=== PATIENT | female | born 1945 | race African-American/Black ===

== ENCOUNTER → 2019-07-09 | Outpatient (CLI) | payer OTHER ==
--- NOTE | 2019-07-09 12:31 | KCIC ---
EXAM: Dual energy x-ray absorptiometry (DEXA). HISTORY: Postmenopausal presents for osteoporosis screening. COMPARISON: None. TECHNIQUE: Dual energy x-ray absorptiometry of the lumbar spine and left hip was performed. Calculation of bone mineral density based on standard deviations above or below the expected young adult normal value (T-score) was completed. FINDINGS: The average bone mineral density in the 1st through 4th lumbar vertebrae is 1.354 g/cmxcm, corresponding with a T-score of 2.8. The average total bone mineral density in the left hip is 1.056 g/cmxcm, corresponding with a T-score of 0.9. IMPRESSION: Normal bone mineral density. Note: Definitions established by the World Health Organization: 1. Normal: T-score is -1.0 or above. 2. Osteopenia: T-score is between -1.0 and -2.5 . 3. Osteoporosis: T-score is -2.5 or below. Electronically signed by: Kia Neves MD (07/09/2019 12:28 PM) [id number]
== END | disposition home or self-care (01) ==
LOC: KCIC MAMMO 10:43
PROVIDERS: ATTEND Family Medicine
DX: Z13.820 Encounter for screening for osteoporosis (principal); Z78.0 Asymptomatic menopausal state
CPT/HCPCS: 77080

== ENCOUNTER → 2019-07-09 | Outpatient (CLI) | payer OTHER ==
--- NOTE | 2019-07-10 09:11 | KCIC ---
EXAM: Bilateral screening mammogram. HISTORY: 74-year-old female presents for screening mammography. TECHNIQUE: Full-field digital craniocaudal and mediolateral oblique views of both breasts are obtained for evaluation. Computer aided detection with DestineerD software version 9.3 was applied. COMPARISON: 10/26/2016 and 07/30/2015 BREAST PARENCHYMAL DENSITY: Level B - Scattered fibroglandular densities. FINDINGS: There is no new suspicious mass, microcalcification or region of architectural distortion. IMPRESSION: BI-RADS Category 2: Benign finding(s). RECOMMENDATION: Annual mammography is recommended. If your mammogram demonstrates that you have dense breast tissue, which could hide abnormalities, and if you have other risk factors for breast cancer that have been identified, you might benefit from supplemental screening tests that may be suggested by your ordering physician. Dense breast tissue, in and of itself, is a relatively common condition. This information is not provided to cause undue concern, but rather to raise your awareness and to promote discussion with your physician regarding the presence of other risk factors, in addition to dense breast tissue. A report of your mammography results will be sent to you and your physician. You should contact your physician if you have any questions or concerns regarding this report. Mammography is a sensitive method for finding small breast cancers, but it does not detect them all and is not a substitute for careful clinical examination. A negative mammogram does not negate a clinically suspicious finding and should not result in delay in biopsying a clinically suspicious abnormality. PQRS compliance statement - Patient information was entered into a reminder system with a target due date for the next mammogram. "Our facility is accredited by the [employer] Mammography Program." Electronically signed by: Kia Neves MD (07/10/2019 9:08 AM) [facility]
== END | disposition home or self-care (01) ==
LOC: KCIC 11:27
PROVIDERS: ATTEND Family Medicine
DX: Z12.31 Encounter for screening mammogram for malignant neoplasm of breast (principal)
CPT/HCPCS: 77067

== ENCOUNTER 2019-10-19 10:09 | Emergency (ER) | payer OTHER ==
[~2019-10-19] VITALS: Ht 172.7 cm; Wt 90.9 kg
[2019-10-19 11:22] LABS: BASO # 0.2 x10^3/uL (0.0-0.2); BASO % 3 % (0-3); EOS # 0.2 x10^3/uL (0.0-0.7); EOS % 2 % (0-3); HEMATOCRIT 38.2 % (36.0-47.0); HEMOGLOBIN 12.6 g/dL (12.0-15.5); LYMPH # 3.1 x10^3/uL (1.0-4.8); LYMPH % 39 % (24-48); MEAN CORPUSCULAR HEMOGLOBIN 26 pg (25-35); MEAN CORPUSCULAR HGB CONC 33 g/dL (31-37); MEAN CORPUSCULAR VOLUME 80 fL (79-100); MONO # 0.9 x10^3/uL (0.0-1.1); MONO % 11 % (0-9); NEUT # 3.6 x10^3/uL (1.8-7.7); NEUT % 45 % (31-73); PLATELET COUNT 324 x10^3/uL (140-400); RED BLOOD COUNT 4.77 x10^6/uL (3.50-5.40); RED CELL DISTRIBUTION WIDTH 13.9 % (11.5-14.5)
[2019-10-19 11:28] LABS: GFR 65.8; POTASSIUM 3.4 mmol/L (3.5-5.1)
[2019-10-19 11:37] LABS: ALBUMIN 3.3 g/dL (3.4-5.0); ALBUMIN/GLOBULIN RATIO 0.8 (1.0-1.7); TOTAL BILIRUBIN 0.3 mg/dL (0.2-1.0); TOTAL PROTEIN 7.3 g/dL (6.4-8.2)
[2019-10-19 11:38] LABS: MAGNESIUM 1.8 mg/dL (1.8-2.4)
[2019-10-19] MEDS ORDERED: CALCIUM GLUCONATE 1,000 MG/10 ML VIAL. IV ONE (12:00)
[2019-10-19] MEDS ORDERED: CALCIUM GLUCONATE 2,000 MG in IV NORMAL SALINE 100ML 100 ML IV ONE (12:00)
[2019-10-19] MEDS ORDERED: POTASSIUM CHLORIDE 20 MEQ TABLET.ER. PO ONE (12:45)
[2019-10-19 12:57] VITALS: BP 167/84
[2019-10-19] MEDS ORDERED: CALC-157 PO (13:12)
--- NOTE | 2019-10-19 13:14 | PHYS DOC ---
Past Medical History Past Medical History: High Cholesterol, Hypertension, Hyperthyroid (LAUREL VILLAFUERTE APRN) Past Surgical History: Other Additional Past Surgical Histo: PARATHYROID REMOVED 10/11/19 (LAUREL VILLAFUERTE APRN) Smoking Status: Never Smoker Alcohol Use: Occasionally (LAUREL VILLAFUERTE APRN) General Adult EDM: Chief Complaint: ABNORMAL LABS HPI: HPI: Patient is a 74 year old AA female who presents to the emergency department after being sent by her hearing care practitioner. Patient states that she had routine labs drawn yesterday for follow-up appointment scheduled on October 20 after having her parathyroid removed on 10/11/2019, this morning her hearing care practitioner called her and told her that her calcium was low and she needed to go to the ER to have it rechecked. Patient denies any loss of muscle control. She states that for the last 2 days she has noticed that her hands and her feet were tingling. She denies any headache, tremors, weakness, headache, vision changes, chest pain, palpitations, nausea, vomiting, diarrhea, abdominal pain, back pain, or fever. She currently denies any pain. (LAUREL VILLAFUERTE APRN) Review of Systems: Review of Systems: Constitutional: Denies fever or chills. [] Eyes: Denies change in visual acuity. [] HENT: Denies nasal congestion or sore throat. [] Respiratory: Denies cough or shortness of breath. [] Cardiovascular: Denies chest pain or edema. [] GI: Denies abdominal pain, nausea, vomiting, or diarrhea. [] Musculoskeletal: Denies back pain or joint pain. [] Integument: Denies rash. [] Neurologic: See HPI Endocrine: Denies polyuria or polydipsia. [] Lymphatic: Denies swollen glands. [] Psychiatric: Denies depression or anxiety. [] (LAUREL VILLAFUERTE APRN) Heart Score: Risk Factors: Risk Factors: DM, Current or recent (<one month) smoker, HTN, HLP, family history of CAD, obesity. Risk Scores: Score 0 - 3: 2.5% MACE over next 6 weeks - Discharge Home Score 4 - 6: 20.3% MACE over next 6 weeks - Admit for Clinical Observation Score 7 - 10: 72.7% MACE over next 6 weeks - Early Invasive Strategies (LAUREL VILLAFUERTE APRN) Current Medications: Current Medications Medications (Trade) Dose Ordered Sig/Dylan Start Time Stop Time Status Last Admin Dose Admin Calcium Gluconate (Calcium Gluconate) 2,000 mg 1X ONCE 10/19/19 12:00 10/19/19 12:01 UNV Calcium Gluconate 2000 mg/Sodium Chloride 120 ml @ 180 mls/hr 1X ONCE 10/19/19 12:00 10/19/19 12:39 DC 10/19/19 12:28 180 MLS/HR Potassium Chloride (Klor-Con) 40 meq 1X ONCE 10/19/19 12:45 10/19/19 12:46 DC (LAUREL VILLAFUERTE APRN) Allergies: Allergies: Allergies Coded Allergies Type Severity Reaction Last Updated Verified No Known Drug Allergies 10/19/19 No (LAUREL VILLAFUERTE APRN) Physical Exam: PE: Constitutional: Well developed, well nourished, no acute distress, non-toxic appearance. [] HENT: Normocephalic, atraumatic, bilateral external ears normal, oropharynx moist, no oral exudates, nose normal. [] Eyes: PERRLA, EOMI, conjunctiva normal, no discharge. [] Neck: Normal range of motion, no tenderness, supple, no stridor; horizontal incision present from recent parathyroid removal, incision edges are well approximated without purulent drainage or warmth there is mild erythema [] Cardiovascular:Heart rate regular rhythm Lungs & Thorax: Bilateral breath sounds clear to auscultation, Respirations even and unlabored, no retractions, no respiratory distress [] Skin: Warm, dry, no erythema, no rash. [] Extremities: No tenderness, no cyanosis, ROM intact, no edema. [] Neurologic: Alert and oriented X 3, normal motor function, normal sensory function, no focal deficits noted. [] Psychologic: Affect normal, judgement normal, mood normal. [] (LAUREL VILLAFUERTE APRN) Current Patient Data: Labs: Laboratory Tests Test 10/19/19 11:06 10/19/19 11:20 White Blood Count 8.0 x10^3/uL (4.0-11.0) Red Blood Count 4.77 x10^6/uL (3.50-5.40) Hemoglobin 12.6 g/dL (12.0-15.5) Hematocrit 38.2 % (36.0-47.0) Mean Corpuscular Volume 80 fL (79-100) Mean Corpuscular Hemoglobin 26 pg (25-35) Mean Corpuscular Hemoglobin Concent 33 g/dL (31-37) Red Cell Distribution Width 13.9 % (11.5-14.5) Platelet Count 324 x10^3/uL (140-400) Neutrophils (%) (Auto) 45 % (31-73) Lymphocytes (%) (Auto) 39 % (24-48) Monocytes (%) (Auto) 11 % (0-9) H Eosinophils (%) (Auto) 2 % (0-3) Basophils (%) (Auto) 3 % (0-3) Neutrophils # (Auto) 3.6 x10^3/uL (1.8-7.7) Lymphocytes # (Auto) 3.1 x10^3/uL (1.0-4.8) Monocytes # (Auto) 0.9 x10^3/uL (0.0-1.1) Eosinophils # (Auto) 0.2 x10^3/uL (0.0-0.7) Basophils # (Auto) 0.2 x10^3/uL (0.0-0.2) Sodium Level 137 mmol/L (136-145) Potassium Level 3.4 mmol/L (3.5-5.1) L Chloride Level 98 mmol/L (98-107) Carbon Dioxide Level 30 mmol/L (21-32) Anion Gap 9 (6-14) Blood Urea Nitrogen 11 mg/dL (7-20) Creatinine 1.0 mg/dL (0.6-1.0) Estimated GFR (Cockcroft-Gault) 65.8 BUN/Creatinine Ratio 11 (6-20) Glucose Level 112 mg/dL (70-99) H Calcium Level 6.0 mg/dL (8.5-10.1) *L Magnesium Level 1.8 mg/dL (1.8-2.4) Total Bilirubin 0.3 mg/dL (0.2-1.0) Aspartate Amino Transferase (AST) 21 U/L (15-37) Alanine Aminotransferase (ALT) 27 U/L (14-59) Alkaline Phosphatase 88 U/L (46-116) Total Protein 7.3 g/dL (6.4-8.2) Albumin 3.3 g/dL (3.4-5.0) L Albumin/Globulin Ratio 0.8 (1.0-1.7) L Ionized Calcium 0.74 mmol/L (1.13-1.32) L Laboratory Tests 10/19/19 11:06 Laboratory Tests 10/19/19 11:06 Vital Signs: Vital Signs Date Time Temp Pulse Resp B/P (MAP) Pulse Ox O2 Delivery O2 Flow Rate FiO2 10/19/19 10:51 97.8 86 20 148/76 (100) 98 Room Air 97.8 (LAUREL VILLAFUERTE APRN) EKG: EKG: [] (LAUREL VILLAFUERTE APRN) Radiology/Procedures: Radiology/Procedures: [] (LAUREL VILLAFUERTE APRN) Course & Med Decision Making: Course & Med Decision Making Pertinent Labs and Imaging studies reviewed. (See chart for details) Patient presents to the emergency department with reports of low calcium from labs drawn yesterday for her hearing care practitioner. Work-up included a CBC, CMP, magnesium, and ionized calcium, CBC is unremarkable; patient's potassium is 3.4, glucose is 112, calcium is 6.0, ionized calcium is 0.74, albumin is 3.3 otherwise unremarkable. I gave the patient 2 g of calcium gluconate over 30 minutes. Her vital signs are stable throughout the emergency department visit. [id number] spoke with Dr. Phillips about patient with low calcium. He agrees that patient does not require hospitalization. Will prescribe calcium with vitamin D3 2 tablets twice a day, and instruct patient to follow up with her hearing care practitioner on Monday as planned. Pt verbalized an understanding of home care, medications, follow-up, and return to ED instructions and was in agreement with the plan of care. [] (LAUREL VILLAFUERTE APRN) Dragon Disclaimer: Dragon Disclaimer: This electronic medical record was generated, in whole or in part, using a voice recognition dictation system. (LAUREL VILLAFUERTE APRN) Departure Departure Impression: Primary Impression: Hypocalcemia Additional Impression: Hypokalemia Disposition: HOME, SELF-CARE Condition: STABLE Referrals: CHERELLE RANGEL MD (PCP) Patient Instructions: Hypocalcemia, Adult, Hypokalemia-Brief Additional Instructions: Fill the prescription and use it as directed. Follow-up with your hearing care practitioner on Monday as planned, be sure to advise him of the calcium supplement that has been prescribed, he may want to adjust your initial dose. Return to the ER if your symptoms worsen. Scripts Calcium Carbonate/Vitamin D3 (CALCIUM 500 + VIT D 200 TABLET) 1 Each Tablet 2 TAB PO BID for 30 Days, #120 TAB 0 Refills Prov: LAUREL VILLAFUERTE APRN 10/19/19 Justicifation of Admission Dx: Justifications for Admission: Justification of Admission Dx: N/A (LAUREL VILLAFUERTE APRN) Attending Signature Attending Signature I have participated in the care of this patient and I have reviewed and agree with all pertinent clinical information above including history, exam, and recommendations. (ILAN BERGER DO) LAUREL VILLAFUERTE APRN Oct 19, 2019 13:14 ILAN BERGER DO Oct 19, 2019 15:11
== END 2019-10-19 13:34 | disposition home or self-care (01) ==
LOC: ER 10:09
DX: E83.51 Hypocalcemia (principal); E87.6 Hypokalemia; R20.2 Paresthesia of skin; E78.00 Pure hypercholesterolemia, unspecified; I10 Essential (primary) hypertension
CPT/HCPCS: 36415; 80053; 82310; 83735; 85025; 96365; 99284; J0610

== ENCOUNTER 2020-07-07 14:30 | Emergency (ER) | payer OTHER ==
[~2020-07-07] VITALS: Ht 170.2 cm; Wt 85.0 kg
[~2020-07-07 14:30] MED LIST: CALC-157 PO
--- NOTE | 2020-07-07 15:39 | EKG ---
[facility] [address] [place] [address] Test Date: 2020-07-07 Test Time: 15:21:01 Pat Name: ALYSSA JOHNSON Department: Room: Gender: F Scrap Picker: : 1945 Requested By: KOBY BLANCAS Order Number: [id number] Reading MD: Measurements Intervals [facility] Rate: 81 P: 28 FL: 170 QRS: -54 QRSD: 86 T: 39 QT: 386 QTc: 449 Interpretive Statements SINUS RHYTHM ABNORMAL LEFT AXIS DEVIATION R-S TRANSITION ZONE IN V LEADS DISPLACED TO THE RIGHT S1,S2,S3 PATTERN LEFT ANTERIOR FASCICULAR BLOCK ABNORMAL ECG RI6.02 No previous ECG available for comparison
--- NOTE | 2020-07-07 15:42 | RAD ---
INDICATION: Reason: soa / Spl. Instructions: / History: COMPARISON: None. FINDINGS: Single view of chest obtained. Hypoexpanded exam. There is some lucency within the lung parenchyma bilaterally. Cardiac silhouette is unremarkable. IMPRESSION: * Lucency at the lung parenchyma bilaterally. Would correlate for possible causes such as emphysema. * No definite focal airspace consolidation. Electronically signed by: Sudhakar Shea MD (07/07/2020 3:40 PM) [id number]
--- NOTE | 2020-07-07 15:47 | PHYS DOC ---
Past Medical History Past Medical History: High Cholesterol, Hypertension, Hyperthyroid Past Surgical History: Other Additional Past Surgical Histo: PARATHYROID REMOVED 10/11/19 Smoking Status: Never Smoker Alcohol Use: Occasionally General Adult EDM: Chief Complaint: SHORTNESS OF BREATH HPI: HPI: 75-year-old female Review of Systems: Review of Systems: Constitutional: Denies fever or chills. [] Eyes: Denies change in visual acuity. [] HENT: Denies nasal congestion or sore throat. [] Respiratory: Denies cough or shortness of breath. [] Cardiovascular: Denies chest pain or edema. [] GI: Denies abdominal pain, nausea, vomiting, bloody stools or diarrhea. [] : Denies dysuria. [] Musculoskeletal: Denies back pain or joint pain. [] Integument: Denies rash. [] Neurologic: Denies headache, focal weakness or sensory changes. [] Endocrine: Denies polyuria or polydipsia. [] Lymphatic: Denies swollen glands. [] Psychiatric: Denies depression or anxiety. [] Heart Score: C/O Chest Pain: No Risk Factors: Risk Factors: DM, Current or recent (<one month) smoker, HTN, HLP, family history of CAD, obesity. Risk Scores: Score 0 - 3: 2.5% MACE over next 6 weeks - Discharge Home Score 4 - 6: 20.3% MACE over next 6 weeks - Admit for Clinical Observation Score 7 - 10: 72.7% MACE over next 6 weeks - Early Invasive Strategies Allergies: Allergies: Allergies Coded Allergies Type Severity Reaction Last Updated Verified No Known Drug Allergies 10/19/19 No Physical Exam: PE: Constitutional: Well developed, well nourished, no acute distress, non-toxic appearance. HENT: Normocephalic, atraumatic, Eyes: EOMI, conjunctiva normal, no discharge. Neck: Normal range of motion, supple, Cardiovascular: S1/2 present, regular rhythm Lungs & Thorax: Speaking in full sentences, bilateral equal chest rise, no tachypnea or increased work of breathing Abdomen: soft, no tenderness, Skin: Warm, dry, no erythema, no rash. [] Back: No tenderness, no CVA tenderness. [] Extremities: No tenderness, no cyanosis, no lower extremity edema Neurologic: Alert and oriented X 3, normal motor function, normal sensory function, no focal deficits noted. [] Psychologic: Affect normal, judgement normal, mood normal. [] EKG: EKG: [] Radiology/Procedures: Radiology/Procedures: []IMAGING REPORT Signed PATIENT: ALYSSA JOHNSONACCOUNT: [id number] : 1945 LOCATION: ER AGE: 75 SEX: F EXAM STATUS: REG ER ORD. PHYSICIAN: KOBY BLANCAS DO REASON: soa PROCEDURE: PORTABLE CHEST 1V INDICATION: Reason: soa / Spl. Instructions: / History: COMPARISON: None. FINDINGS: Single view of chest obtained. Hypoexpanded exam. There is some lucency within the lung parenchyma bilaterally. Cardiac silhouette is unremarkable. IMPRESSION: * Lucency at the lung parenchyma bilaterally. Would correlate for possible causes such as emphysema. * No definite focal airspace consolidation. Electronically signed by: Akash Nunn MD (07/07/2020 3:40 PM) [id number] DICTATED and SIGNED BY: AKASH NUNN MD DATE: 07/07/20 [id number] 0 IMAGING REPORT Signed PATIENT: ALYSSA JOHNSONACCOUNT: [id number] : 1945 LOCATION: ER AGE: 75 SEX: F EXAM STATUS: REG ER ORD. PHYSICIAN: KOBY BLANCAS DO REASON: sore throat, neck pain, soa PROCEDURE: CT SOFT TISSUE NECK W/CONTRAST Exam: CT neck with contrast INDICATION: Sore throat and neck pain TECHNIQUE: Sequential axial images through the neck obtained following the administration of 70 mL of Omni 300 IV contrast. Sagittal and coronal reformatted images were reconstructed from the axial data and reviewed. Comparisons: None FINDINGS: Visualized intracranial structures are unremarkable. Cervical vasculature is patent. Nasopharynx, oropharynx, hypopharynx and larynx are unremarkable. Thyroid and salivary glands are within normal limits. No enlarged cervical lymph nodes are identified. Lung apices are clear. No suspicious osseous lesions or acute fractures. IMPRESSION: Unremarkable evaluation of the neck. Exposure: One or more of the following in the visualized dose reduction techniques were utilized for this examination: 1. Automated exposure control 2. Adjustment of the MA and/or KV according to patient size 3. Use of iterative of reconstructive technique Electronically signed by: Eddie Maria MD (07/07/2020 6:14 PM) [facility] DICTATED and SIGNED BY: EDDIE MARIA MD DATE: 07/07/20 [id number] 0 Course & Med Decision Making: Course & Med Decision Making Pertinent Labs and Imaging studies reviewed. (See chart for details) Will discharge home with strict ED return precautions were given for []. Encouraged urgent outpatient follow-up with PMD and ENT or general surgery, however performed her parathyroidectomy. Life-threatening processes were considered but are low suspicion at this time, given history, physical exam and ED workup. Pt was educated on all prescription medications and adverse effects. All patient's questions were answered and pt was stable at time of discharge. Life/limb-threatening differential includes but is not limited to, ACS, dysrhythmia, pneumothorax or hemothorax, pulmonary embolus, pneumonia, bronchoconstriction, pulmonary edema, angioedema, epiglottitis, tracheitis, Donnie's angina, RPA/MONUMENT SETTER, anaphylaxis, angioedema, cardiac tamponade or murmurs, pericarditis, myocarditis, poisoning or toxicity, sepsis or autoimmune/neurol ogic disease. I spoken with the patient and her caregivers. I explained the patient's condition, diagnoses and treatment plan based on the information available to me at this time. I have answered the patient and her caregiver's questions and addressed any concerns. The patient and her caregivers have a good understanding of patient's diagnosis, condition and treatment plan as can be expected at this point. Vital signs have been stable. Patient's condition is stable and appropriate for discharge from the emergency department. Patient will pursue further outpatient evaluation with primary care physician or other designated or consulting physician as outlined in the discharge instructions. The patient and/or caregivers are agreeable to this plan of care and follow-up instructions have been explained in detail. The patient and/or caregivers have received these instructions in written form and have expressed an understanding of the discharge instructions. The patient and/or caregivers are aware that any significant change of condition or worsening of symptoms should prompt immediate return to this or the closest emergency department or call to 911. Jules Disclaimer: Jules Disclaimer: This electronic medical record was generated, in whole or in part, using a voice recognition dictation system. Departure Departure Impression: Primary Impression: Chronic hoarseness Additional Impression: Dyspnea Disposition: 01 DC HOME SELF CARE/HOMELESS Condition: STABLE Referrals: CHERELLE RANGEL MD (PCP) in 1 week Patient Instructions: Hoarseness, Shortness of Breath Additional Instructions: PLEASE FOLLOW UP WITH YOUR SURGEON IN THE NEXT 3 DAYS OR FOLLOW UP WITH ENT: Otolaryngology Address: [address], [address] [place] [address] [employer] [facility] Address: [address] [address] [place] [address] FOLLOW UP WITH NEUROSURGERY: Neurological Surgery [facility] Address: [address] [place] [address] EMERGENCY DEPARTMENT GENERAL DISCHARGE INSTRUCTIONS Thank you for coming to [facility] Emergency Department (ED) today and trusting us with you care. We trust that you had a positive experience in our Emergency Department. If you wish to speak to the department management, you may call the Director at [phone]. YOUR FOLLOW UP INSTRUCTIONS ARE FOLLOWS: 1. Do you have a private Doctor? If you do not have a private doctor, please ask for a resource list of physicians or clinics that may be able to assist you with follow up care. 2. The Emergency Physicain has interpreted your x-rays. The X-Ray specialist will also review them. If there is a change in the findings, you will be notified in 48 hours when at all possible. 3. A lab test or culture has been done, your results will be reviewed and you w ill be notified if you need a change in treatment. ADDITIONAL INSTRUCTIONS AND INFORMATION: 1. Your care today has been supervised by a physician who is specially trained in emergency care. Many problems require more than one evaluation for a complete diagnosis and treatment. We recommend that you schedule your follow up appointment as recommended to ensure complete treatment of you illness or injury. If you are unable to obtain follow up care and continue to have a problem, or if your condition worsens, we recommend that you return to the ED. 2. We are not able to safely determine your condition over the phone nor are we able to give sound medical advice over the phone. For these safety reasons, if you call for medical advice we will ask you to come to the ED for further evaluation. 3. If you have any questions regarding these discharge instructions please call the ED at [phone]. SAFETY INFORMATION: In the interest of safety, wellness, and injury prevention; we encourage you to wear your sealbelt, if you smoke; quite smoking, and we encourage family to use a protective helmet for bicycling and other sporting events that present an increased risk for head injury. IF YOUR SYMPTOMS WORSEN OR NEW SYMPTOMS DEVELOP, OR YOU HAVE CONCERNS ABOUT YOUR CONDITION; OR IF YOUR CONDITION WORSENS WHILE YOU ARE WAITING FOR YOUR FOLLOW UP APPOINTMENT; EITHER CONTACT YOUR PRIMARY CARE DOCTOR, THE PHYSICIAN WHOSE NAME AND NUMBER YOU WERE GIVEN, OR RETURN TO THE ED IMMEDIATELY. KOBY KAPADIA DO Jul 07, 2020 15:47
[2020-07-07 15:55] LABS: BASO # 0.1 x10^3/uL (0.0-0.2); BASO % 1 % (0-3); EOS # 0.4 x10^3/uL (0.0-0.7); EOS % 4 % (0-3); HEMATOCRIT 39.9 % (36.0-47.0); HEMOGLOBIN 12.9 g/dL (12.0-15.5); LYMPH # 3.7 x10^3/uL (1.0-4.8); LYMPH % 41 % (24-48); MEAN CORPUSCULAR HEMOGLOBIN 26 pg (25-35); MEAN CORPUSCULAR HGB CONC 32 g/dL (31-37); MEAN CORPUSCULAR VOLUME 79 fL (79-100); MONO # 0.7 x10^3/uL (0.0-1.1); MONO % 8 % (0-9); NEUT # 4.1 x10^3/uL (1.8-7.7); NEUT % 46 % (31-73); PLATELET COUNT 328 x10^3/uL (140-400); RED BLOOD COUNT 5.07 x10^6/uL (3.50-5.40); RED CELL DISTRIBUTION WIDTH 15.2 % (11.5-14.5); WHITE BLOOD COUNT 9.1 x10^3/uL (4.0-11.0)
[2020-07-07 16:15] LABS: CREATININE 0.9 mg/dL (0.6-1.0); GFR 74.1; POTASSIUM 3.5 mmol/L (3.5-5.1)
[2020-07-07 16:21] LABS: ALBUMIN 3.6 g/dL (3.4-5.0); ALBUMIN/GLOBULIN RATIO 0.8 (1.0-1.7); TOTAL BILIRUBIN 0.3 mg/dL (0.2-1.0); TOTAL PROTEIN 7.9 g/dL (6.4-8.2)
[2020-07-07] MEDS ORDERED: CONTRAST GIVEN. MC PRN (16:45)
[2020-07-07] MEDS ORDERED: IOHEXOL 300 MG/ML 100ML VIAL. IV ONE (16:45)
--- NOTE | 2020-07-07 18:16 | RAD ---
Exam: CT neck with contrast INDICATION: Sore throat and neck pain TECHNIQUE: Sequential axial images through the neck obtained following the administration of 70 mL of Omni 300 IV contrast. Sagittal and coronal reformatted images were reconstructed from the axial data and reviewed. Comparisons: None FINDINGS: Visualized intracranial structures are unremarkable. Cervical vasculature is patent. Nasopharynx, oropharynx, hypopharynx and larynx are unremarkable. Thyroid and salivary glands are within normal limits. No enlarged cervical lymph nodes are identified. Lung apices are clear. No suspicious osseous lesions or acute fractures. IMPRESSION: Unremarkable evaluation of the neck. Exposure: One or more of the following in the visualized dose reduction techniques were utilized for this examination: 1. Automated exposure control 2. Adjustment of the MA and/or KV according to patient size 3. Use of iterative of reconstructive technique Electronically signed by: Eddie Otoole MD (07/07/2020 6:14 PM) [facility]
[2020-07-07 19:26] VITALS: BP 141/81
== END 2020-07-07 19:28 | disposition home or self-care (01) ==
LOC: ER 14:30
DX: R06.02 Shortness of breath (principal); R49.0 Dysphonia; E78.00 Pure hypercholesterolemia, unspecified; I10 Essential (primary) hypertension
CPT/HCPCS: 36415; 70491; 71045; 80053; 83880; 84484; 85025; 85379; 93005; 99285; Q9967

== ENCOUNTER → 2020-08-13 | Outpatient (CLI) | payer OTHER ==
--- NOTE | 2020-08-13 13:00 | KCIC ---
Bilateral digital screening mammograms: Reason for examination: Routine screening. Comparison is made to previous studies dated back to 08/07/2014. Interpretation was made with the benefit of CAD. The skin and nipples show no abnormalities. No abnormal axillary lymph nodes are seen. The breast par enchyma shows scattered fibroglandular density. (Breast density: Category B.) There continues be a no dular density in the 12:00 B position of the right breast which appears to be stable. There are howev er new calcifications present in the lower inner quadrant of the right breast at approximately the 4: 00 C position 12 cm from the nipple. Further evaluation with coned magnification views is recommended . There are no other dominant masses, suspicious calcifications or architectural distortions. Impression: New clustered microcalcifications in the 4:00 C position of the right breast. Recommend further evalu ation with coned magnification views. BI-RADS Category 0: Incomplete. Needs additional imaging evaluation. "Our facility is accredited by the [employer]." This patient's information has been entered into a reminder system for the patient to be notified wit h the results of her examination and a target date for the next mammogram. Electronically signed by: Daniela Todd MD (08/13/2020 12:58 PM) [email or web address]
== END ==
LOC: KCIC MAMMO 12:18
PROVIDERS: ATTEND Family Medicine
DX: Z12.31 Encounter for screening mammogram for malignant neoplasm of breast (principal); N64.89 Other specified disorders of breast
CPT/HCPCS: 77067

== ENCOUNTER → 2020-08-25 | Outpatient (CLI) | payer OTHER ==
--- NOTE | 2020-08-25 15:34 | KCIC ---
Right breast diagnostic digital mammograms: Reason for examination: Calcifications on screening exam. Comparison is made to mammographic exam dated 08/13/2020. Coned compression magnification views of the right breast were obtained in CC and lateral projections . There is a cluster of indeterminate calcifications at the 4:00 C position of the right breast. Stereo tactic biopsy is recommended. IMPRESSION: Clustered calcifications at the 4:00 C position of the right breast. Stereotactic biopsy is recommend ed. BI-RADS Category 4: Suspicious. These findings were discussed with the patient and Dr. Dick's office was notified about these findin gs with a message left on the manager medical writing's answering machine at 3:30 on 08/25/2020. "Our facility is accredited by the [employer]." Electronically signed by: Daniela Todd MD (08/25/2020 3:32 PM) [email or web address]
== END ==
LOC: KCIC MAMMO 12:52
PROVIDERS: ATTEND Family Medicine
DX: R92.1 Mammographic calcification found on diagnostic imaging of breast (principal)
CPT/HCPCS: 77065

== ENCOUNTER → 2020-09-10 | Outpatient (CLI) | payer OTHER ==
[~2020-09-10] MED LIST changes: +LIDOCAINE 2%/EPI 1:100,000 20 ML VIAL. INJ ONE; +LIDOCAINE WITH 8.4% SOD BICARB 3 ML DISP.SYRIN. INJ ONE; +LIDOCAINE WITH 8.4% SOD BICARB 3 ML DISP.SYRIN. ONE
--- NOTE | 2020-09-10 13:20 | RAD ---
EXAM: Stereotactic right breast biopsy; specimen radiograph; post-biopsy clip placement; unilateral p ost-biopsy mammogram. HISTORY: 75-year-old female presents for stereotactic guided biopsy of microcystic calcifications wit hin the right breast demonstrated on a mammogram performed 08/25/2020. TECHNIQUE AND FINDINGS: The procedure and its risks and benefits were discussed with the patient. Ris ks discussed included, but were not limited to, pain, infection, bleeding and need for repeat biopsy. The patient provided verbal and written consent. A timeout was performed The patient was placed in a prone position of the stereotacic table and the right breast was placed i n medial and lateral compression. Images were obtained and the ossification of concern were localized using stereotaxis. The skin overlying this region was then sterilely prepped and infiltrated with a few cc 1% lidocaine for local anesthesia. Deeper soft tissue anesthesia was administered with epineph rine in 1% lidocaine. A small skin incision was made and the biopsy device was advanced and appropria te positioning was confirmed with additional images. Subsequently, multiple core biopsy samples were obtained with vacuum assistance. A plain radiograph o f the specimen was obtained, demonstrating inclusion of the lesion of interest. Then, a post-biospy c lip was advanced to the site of biopsy using the same guidance technique. A sterile bandage was plac ed, and the patient was transferred to the mammography suite for craniocaudal and mediolateral obliqu e views. The post-biopsy mammogram was interpreted a separate workstation and demonstrate immediate post-biosp y changes and a biopsy clip slightly lateral to residual calcifications in the biopsy bed. The patien t tolerated the procedure without difficulty and was discharged to home in stable condition with post -biospy care instructions. IMPRESSION: Successful stereotactic guided biopsy of microcalcification within the right breast. An a ddendum to this report will be submitted when pathology results are available. Electronically signed by: Kia Neves MD (09/10/2020 1:18 PM) [id number]
--- NOTE | 2020-09-14 15:13 | PATHOLOGY ---
[facility] Accession Number: [id number] . 01 Material submitted: . breast - RIGHT BREAST MICROCALCIFICATION. Modifiers: right . 02 Diagnosis: Breast tissue, right breast stereotactic needle biopsies: - Ancient fibroadenomatous change, focal, with associated calcifications. - Stromal fibrosis, focal. . (JPM:mm; 09/14/2020) [facility] 09/14/2020 1452 Local . 02 Comment: There is no atypia or evidence of malignancy. . (JPM:mml; 09/14/2020) . 02 Electronically signed: . Arnold Rick MD, Pathologist NPI- [id number] . 01 Gross description: . The specimen is received in formalin, labeled "Mikayla Torres, right breast" received as multiple soft vallejo-yellow tissue cores measuring up to 1.5 cm x 0.2 cm. The specimen is entirely submitted A1-A2. A1 cores received in orange cassette A2 remainder of specimen The specimen is removed from the patient at 1248 hours and placed in formalin at 1255 hours on , September 10, 2020. The specimen is removed from formalin at 11:30pm. The specimen is in formalin for greater than 6 hours and less than 72 hours.([facility]; 09/10/2020) [facility] 09/14/2020 0938 Local . 02 Pathologist provided ICD-10: D24.1, N60.31 . 02 CPT . 870638 Specimen Comment: A courtesy copy of this report has been sent to [phone] Specimen Comment: [phone], Specimen Comment: Report sent to ,DR OLIVEIRA / DR RANGEL Performed at: 01 [facility] [address], [place], [place] [id number] MD Pancho Rangel MD Phone: [phone] Performed at: 02 [facility] [address], [place] [id number] MD Arnold Rick MD Phone: [phone]
== END | disposition home or self-care (01) ==
LOC: MAMMO 11:49
PROVIDERS: ATTEND Surgery
DX: R92.1 Mammographic calcification found on diagnostic imaging of breast (principal); R92.8 Other abnormal and inconclusive findings on diagnostic imaging of breast; Z79.899 Other long term (current) drug therapy; Z72.89 Other problems related to lifestyle
CPT/HCPCS: 19081; 77065; J3490